=== PATIENT | female | born 1990 | race African-American/Black ===

== ENCOUNTER 2018-04-26 01:06 | Emergency (ER) | END 2018-04-26 03:05 | disposition home or self-care (01) ==

== ENCOUNTER 2018-05-11 21:34 | Emergency (ER) | END 2018-05-12 02:07 | disposition home or self-care (01) ==

== ENCOUNTER 2018-07-05 08:59 | Emergency (ER) | END 2018-07-05 11:38 | disposition home or self-care (01) ==

== ENCOUNTER 2018-07-18 04:59 | Inpatient (IN) | END 2018-07-19 18:55 | disposition home or self-care (01) | DRG 309 ==